=== PATIENT | female | born 1970 | race Two or more races ===

== ENCOUNTER 2017-10-16 10:54 | Outpatient (CLI) | payer OTHER | END 2017-10-16 10:59 | disposition home or self-care (01) | LOC: SONOGRAMA 10:54 | DX: E04.2 Nontoxic multinodular goiter (principal) ==

== ENCOUNTER 2018-11-26 07:04 | Outpatient (CLI) | payer OTHER | END 2018-11-26 07:10 | disposition home or self-care (01) | LOC: RX STUDY 07:04 | DX: R13.13 Dysphagia, pharyngeal phase (principal) ==

== ENCOUNTER 2019-01-07 14:19 | Outpatient (CLI) | payer OTHER | END 2019-01-07 14:21 | disposition home or self-care (01) | LOC: SONOGRAMA 14:19 | DX: E04.1 Nontoxic single thyroid nodule (principal) ==

== ENCOUNTER 2019-08-09 13:27 | Outpatient (CLI) | payer OTHER | END 2019-08-09 13:31 | disposition home or self-care (01) | LOC: SONOGRAMA 13:27 | DX: K56.41 Fecal impaction (principal); E03.8 Other specified hypothyroidism; E04.2 Nontoxic multinodular goiter ==

== ENCOUNTER 2019-11-01 12:02 | Outpatient (CLI) | payer OTHER | END 2019-11-01 12:11 | disposition home or self-care (01) | LOC: SONOGRAMA 12:02 | DX: S30.1XXA Contusion of abdominal wall, initial encounter (principal) ==

== ENCOUNTER 2019-12-06 11:54 | Outpatient (CLI) | payer OTHER | END 2019-12-06 12:00 | disposition home or self-care (01) | LOC: SONOGRAMA 11:54 | DX: E03.8 Other specified hypothyroidism (principal); E04.2 Nontoxic multinodular goiter ==